=== PATIENT | female | born 1965 | race Caucasian/White ===

== ENCOUNTER 2019-01-23 08:12 | Emergency (ER) | payer OTHER ==
[~2019-01-23] VITALS: Ht 170.2 cm; Wt 67.1 kg
[2019-01-23 08:16] VITALS: BP 143/84; Ht 170.2 cm; Wt 67.1 kg
== END 2019-01-23 08:34 | disposition home or self-care (01) ==
LOC: ED 08:12
DX: S76.911A Strain of unspecified muscles, fascia and tendons at thigh level, right thigh, initial encounter (principal); X58.XXXA Exposure to other specified factors, initial encounter; Y93.89 Activity, other specified; Y92.89 Other specified places as the place of occurrence of the external cause; Y99.8 Other external cause status